=== PATIENT | female | born 1955 | race African-American/Black ===

== ENCOUNTER 2019-03-30 12:09 | Inpatient (IN) | payer MEDICAID, MEDICARE ==
[~2019-03-30] VITALS: Ht 149.9 cm; Wt 71.8 kg
[~2019-03-30 12:09] MED LIST: AMLO10TA80; ASPI-1158 PO; ATOR40TA70 PO; CLOP75TA33 PO; D-ME473S8 PO; FERR325T6 PO; FURO40TA5 PO; HYDR-4009 PO; IPRA4AER INH; METH10TA7 PO; METO25TA6 PO; MULT-783 PO; PROPRANOLOL PO; TIOT18CA3 INH; VALS40TA11 PO
[2019-03-30 12:56] LABS: BASOPHILS % 0.7 % (0.0-2.0); EOSINOPHILS % 6.2 % (0.0-5.0); HEMATOCRIT. 42.3 % (36.0-48.0); HEMOGLOBIN. 13.7 g/dL (12.0-16.0); LYMPHOCYTES % 18.6 % (20.0-50.0); MEAN CORPUSCULAR HEMOGLOBIN 29.2 pg (28.0-32.0); MEAN CORPUSCULAR VOLUME 89.8 fL (81.0-99.0); MEAN PLATELET VOLUME 8.5 fl (7.4-10.4); MONOCYTES % 10.7 % (2.0-8.0); NEUTROPHILS % 63.8 % (40.0-76.0); PLATELET 216 x1000/uL (130-400); RED BLOOD CELL COUNT 4.71 mill/uL (4.2-5.4); RED CELL DISTRIBUTION WIDTH 12.9 % (11.6-14.6)
[2019-03-30 13:01] LABS: CHLORIDE 108 mEq/L (98-107)
[2019-03-30] MEDS ORDERED: ONDANSETRON HCL 4MG/2ML INJ IV PRN (19:00)
[2019-03-30] MEDS ORDERED: LORAZEPAM 0.5MG TABLET PO PRN (19:00)
[2019-03-30] MEDS ORDERED: NITROGLYCERIN 0.4MG TABLET SL SL PRN (19:00)
[2019-03-30] MEDS ORDERED: ACETAMINOPHEN 325MG TABLET PO PRN (19:00)
[2019-03-30] MEDS ORDERED: GUAIFENESIN 200MG/10ML SUGAR FREE UDC PO PRN (19:00)
[2019-03-30] MEDS ORDERED: DOCUSATE SODIUM 100MG CAPSULE PO PRN (19:00)
[2019-03-30] MEDS ORDERED: CLONIDINE 0.1MG TABLET PO PRN (19:00)
[2019-03-30] MEDS ORDERED: IPRATROPIUM/ALBUTEROL 0.5-3(2.5)MG/3ML NEB HHN PRN (19:00)
[2019-03-30 20:48] VITALS: BP 108/51
[2019-03-30] MEDS: HYDROCODONE/ACETAMINOPHEN 5/325MG TABLET PO PRN (21:47)
[2019-03-31] VITALS: BP_SYST 116; BP_SYST 124; BP_DIAS 51; BP_DIAS 62
[2019-03-31 04:00] VITALS: BP 99/55
[2019-03-31 07:20] LABS: BASOPHILS % 1.2 % (0.0-2.0); EOSINOPHILS % 6.5 % (0.0-5.0); HEMATOCRIT. 40.4 % (36.0-48.0); HEMOGLOBIN. 12.9 g/dL (12.0-16.0); LYMPHOCYTES % 30.1 % (20.0-50.0); MEAN CORPUSCULAR VOLUME 90.4 fL (81.0-99.0); MEAN PLATELET VOLUME 8.7 fl (7.4-10.4); MONOCYTES % 14.1 % (2.0-8.0); NEUTROPHILS % 48.1 % (40.0-76.0); PLATELET 211 x1000/uL (130-400); RED BLOOD CELL COUNT 4.47 mill/uL (4.2-5.4); RED CELL DISTRIBUTION WIDTH 12.8 % (11.6-14.6)
[2019-03-31 07:36] LABS: CHLORIDE 110 mEq/L (98-107)
[2019-03-31 08:00] VITALS: BP 112/54
[2019-03-31] MEDS: FUROSEMIDE 40MG TABLET PO SCH (08:27)
[2019-03-31] MEDS ORDERED: NON FORMULARY PATIENT HOME MED XX SCH (10:00)
[2019-03-31] MEDS: CLOPIDOGREL 75MG TABLET PO SCH (10:35)
[2019-03-31] MEDS: LOSARTAN POTASSIUM 25 MG TABLET PO SCH (10:35)
[2019-03-31 11:54] VITALS: BP 117/63
[2019-03-31] MEDS: HYDROCODONE/ACETAMINOPHEN 5/325MG TABLET PO PRN (12:46)
[2019-03-31 15:56] VITALS: BP 126/74
[2019-03-31] MEDS ORDERED: METHIMAZOLE 5MG TABLET PO SCH (17:00)
[2019-03-31 20:00] VITALS: BP 110/64
[2019-03-31] MEDS ORDERED: ATORVASTATIN CALCIUM 40MG TABLET PO SCH (21:00)
[2019-04-01] VITALS: BP 124/62
[2019-04-01 04:00] VITALS: BP 142/68
[2019-04-01] MEDS: HYDROCODONE/ACETAMINOPHEN 5/325MG TABLET PO PRN (04:18)
[2019-04-01 07:08] LABS: EOSINOPHILS % 7.5 % (0.0-5.0); HEMOGLOBIN. 13.8 g/dL (12.0-16.0); MEAN CORPUSCULAR HEMOGLOBIN 29.5 pg (28.0-32.0); MEAN CORPUSCULAR VOLUME 89.6 fL (81.0-99.0); MEAN PLATELET VOLUME 8.8 fl (7.4-10.4); MONOCYTES % 12.2 % (2.0-8.0); NEUTROPHILS % 54.3 % (40.0-76.0); PLATELET 223 x1000/uL (130-400); RED BLOOD CELL COUNT 4.69 mill/uL (4.2-5.4); RED CELL DISTRIBUTION WIDTH 12.7 % (11.6-14.6)
[2019-04-01 07:13] LABS: CHLORIDE 105 mEq/L (98-107)
[2019-04-01 08:00] VITALS: BP 131/64
[2019-04-01] MEDS ORDERED: AMLODIPINE 10MG TABLET PO SCH (09:00)
[2019-04-01] MEDS ORDERED: METHIMAZOLE 5MG TABLET PO SCH (09:00)
[2019-04-01] MEDS ORDERED: ASPIRIN 81MG EC TABLET PO SCH (09:00)
[2019-04-01] MEDS ORDERED: METOPROLOL TARTRATE 25MG TABLET PO SCH (09:00)
[2019-04-01] MEDS: LOSARTAN POTASSIUM 25 MG TABLET PO SCH (09:50)
[2019-04-01] MEDS: CLOPIDOGREL 75MG TABLET PO SCH (09:51)
[2019-04-01] MEDS: FUROSEMIDE 40MG TABLET PO SCH (09:51)
[2019-04-01] MEDS ORDERED: POTASSIUM CHLORIDE 20MEQ TABLET SR PO SCH (10:00)
[2019-04-01] MEDS ORDERED: MULTIVITAMINS,THER W-MINERALS TABLET PO SCH (10:00)
[2019-04-01 12:00] VITALS: BP 100/64
[2019-04-01] MEDS ORDERED: TAP5 PO (13:18)
[2019-04-01] MEDS ORDERED: LOSA25TA3 PO (13:18)
== END 2019-04-01 16:20 | disposition home or self-care (01) | DRG 198 ==
LOC: ER 12:09 → 6WST 17:38 → EDBEDREQ 17:47 → ENRESERV 20:15
PROVIDERS: ADMIT Internal Medicine; ATTEND Internal Medicine
DX: R07.9 Chest pain, unspecified (principal); I25.119 Atherosclerotic heart disease of native coronary artery with unspecified angina pectoris; D72.1 Eosinophilia; I11.0 Hypertensive heart disease with heart failure; I50.32 Chronic diastolic (congestive) heart failure; J44.9 Chronic obstructive pulmonary disease, unspecified; E05.90 Thyrotoxicosis, unspecified without thyrotoxic crisis or storm; Z95.5 Presence of coronary angioplasty implant and graft; Z79.899 Other long term (current) drug therapy; Z87.891 Personal history of nicotine dependence; Z88.0 Allergy status to penicillin; Z79.82 Long term (current) use of aspirin; I25.2 Old myocardial infarction
CPT/HCPCS: 36415; 71045; 80048; 80053; 80061; 83036; 83880; 84443; 84484; 85025; 85379; 93005; 93306; 99285; C1893